=== PATIENT | male | born 1980 | race Caucasian/White ===

== ENCOUNTER 2022-12-07 12:40 | Emergency (ER) | payer OTHER ==
[~2022-12-07] VITALS: Ht 177.8 cm; Wt 81.6 kg
[2022-12-07] MEDS ORDERED: IBUP-1953 PO (15:28)
[2022-12-07] MEDS ORDERED: METH-647 PO (15:28)
[2022-12-07 16:13] VITALS: BP 166/119; TEMP 97.8; O2SAT 100
== END 2022-12-07 16:13 | disposition home or self-care (01) ==
LOC: ER 12:40
DX: S39.012A Strain of muscle, fascia and tendon of lower back, initial encounter (principal); S50.11XA Contusion of right forearm, initial encounter; S70.11XA Contusion of right thigh, initial encounter; M62.830 Muscle spasm of back; W31.89XA Contact with other specified machinery, initial encounter; Y93.89 Activity, other specified; Y92.89 Other specified places as the place of occurrence of the external cause; Y99.8 Other external cause status
CPT/HCPCS: 72128-TC; 72131-TC; 73564-TC